=== PATIENT | female | born 1975 | race Caucasian/White ===

== ENCOUNTER → 2022-10-14 15:34 | Outpatient (BNVA) | payer MEDICAID, SELFPAY | PROVIDERS: PCP Family Medicine; Visit Provider Family Medicine | DX: Z20.822 Contact with and (suspected) exposure to COVID-19 (principal); R50.9 Fever, unspecified; R11.2 Nausea with vomiting, unspecified; R52 Pain, unspecified | CPT/HCPCS: 87400; 87426 ==

== ENCOUNTER → 2023-01-05 09:11 | Outpatient (BNVA) | payer MEDICAID, SELFPAY | PROVIDERS: PCP Family Medicine; Visit Provider Nurse Practitioner Family | DX: N32.81 Overactive bladder (principal); I10 Essential (primary) hypertension | CPT/HCPCS: 80053; 80061; 81003; 84443; 85025 ==

== ENCOUNTER → 2023-01-26 16:00 | Outpatient (BNVA) | payer MEDICAID, SELFPAY | PROVIDERS: PCP Family Medicine; Visit Provider Obstetrics & Gynecology | DX: Z12.4 Encounter for screening for malignant neoplasm of cervix (principal) | CPT/HCPCS: 87624 ==

== ENCOUNTER 2023-03-31 20:07 | Emergency (ER) | payer MEDICAID, SELFPAY ==
[2023-03-31 20:27] VITALS: BP 156/93; PULSE 72; RESP 16; TEMP 36.7; O2SAT 100
--- NOTE | 2023-03-31 20:59 | W.ED.NAVMDI ---
HPI - Nausea/Vomiting/Diarrhea General: Chief complaint: Nausea/Vomiting/Diarrhea Stated complaint: jaw pain / vomiting Time Seen by Provider: 03/31/23 20:55 History of Present Illness: Presents to the ER with complaints of nausea and vomiting since about 1-2 o'clock today. Patient had 4 teeth pulled yesterday went home and was doing good went to bed and slept and woke up this morning was still doing good up until about 1 or 2:00 when started vomiting. Patient's threw up all the contents of her stomach and just is dry heaving at the moment. Patient is thirsty and wants something to drink however she knows she cannot keep it down. Review of Systems General: Reports: 10 or more systems reviewed and unremarkable except in HPI and below PFSH ED PFSH: Medical History Anxiety and depression Arthritis Basal cell carcinoma Carpal tunnel syndrome, bilateral Chronic low back pain Hyperlipidemia Hypertension Overactive bladder Seasonal allergies Surgical History H/O tubal ligation History of Family History Mother Hypertension Diabetes AAA (abdominal aortic aneurysm) Heart disease Grandmother Cancer LIVER CANCER Social History Smoking and tobacco status: former smoker Quit status (tobacco): has quit using tobacco Year quit tobacco: QUIT 10 YEARS AGO, 1-2 pp Second hand smoke exposure: No Alcohol intake: current Alcohol intake frequency: holidays/special occasions only Alcohol type: hard liquor Substance/Drug Use: never Household members: spouse, family and children Marital status: service: No Current occupational status: employed Current gender identity: Female Christine/Evangelical: Quaker Special christine needs: No Physical Exam Const: COMMON NORMALS: no acute distress, average body habitus, patient oriented x3, no limitations, healthy appearing, alert and well nourished HENMT: COMMON NORMALS: normocephalic, atraumatic, hearing grossly normal bilaterally, external ears normal, Normal external nose present and moist oral mucous membranes HEAD & SCALP: normocephalic and atraumatic NOSE: Normal external nose present EXTERNAL EAR: Yes external ears normal Eye: COMMON NORMALS: Equal, round and reactive pupils present, EOMs intact bilaterally, conjunctivae normal and no scleral icterus CONJUNCTIVA: Yes conjunctivae normal PUPIL: Yes Equal, round and reactive pupils present Neck/C-Spine: COMMON NORMALS: full ROM, no lymphadenopathy, supple, no meningeal signs, no JVD and Thyroid normal THYROID: Thyroid normal Chest: COMMONS NORMALS: normal inspection of the chest and normal palpation of entire chest wall Resp: COMMON NORMALS: normal respiratory effort, No retractions, No use of accessory muscles and clear to auscultation bilaterally AUSCULTATION: clear to auscultation bilaterally Cardio: COMMON NORMALS: no JVD, regular rate, regular rhythm, S1 normal heart sound present, S2 normal heart sound present, No gallops present (Cardio), No clicks present (Cardio), No murmurs present (Cardio) and No rub (Cardio) RATE: regular rate RHYTHM: regular rhythm HEART SOUNDS: S1 normal heart sound present and S2 normal heart sound present GI: COMMON NORMALS: Normal to inspection, nondistended, normoactive bowel sounds present, Soft to palpation, non-tender, No hepatosplenomegaly present and no masses PALPATION: Yes Soft to palpation and Yes No hepatosplenomegaly present : COMMON NORMALS: Yes no CVA tenderness BLADDER/KIDNEY EXAM: Yes no CVA tenderness Back/Pelvis: COMMON NORMALS: no CVA tenderness Neuro: COMMON NORMALS: patient oriented x3 SENSORIUM/ORIENTATION: Yes alert MENINGEAL SIGNS: Yes no meningeal signs Course Vital Signs: Vital signs: Vital Signs Temperature 98.0 F 03/31/23 20:27 Pulse Rate 72 03/31/23 20:27 Respiratory Rate 16 03/31/23 20:27 Blood Pressure 156/93 03/31/23 20:27 Pulse Oximetry 100 03/31/23 20:27 Oxygen Delivery Me thod Room Air 03/31/23 20:27 MDM - Nausea/Vomiting/Diarrhea Medical Decision Making Patient presents to the ER with complaints of nausea vomiting for about the last 8 hours. Patient had 4 teeth pulled yesterday went home and was fine and then started vomiting today. Patient was given 1 L normal saline bolus 4 mg Zofran and felt much better upon finishing this. Patient states ready go home to and just wants some nausea medicine to go home with. Patient be discharged home with a prescription for Phenergan. Differential Diagnosis Unlikely traveler's diarrhea, food poisoning, gastroenteritis, clostridium difficile infection, drug-induced nausea and vomiting or dehydration Medical Records I reviewed the patient's medical records. Lab Data I reviewed the patient's lab results. 03/31/23 21:19 03/31/23 21:19 Laboratory Results WBC 9.85 10^3/uL (3.29-11.43) 03/31/23 21:19 RBC 4.45 10^6/uL (3.85-5.65) 03/31/23 21:19 Hgb 13.60 g/dL (11.27-16.99) 03/31/23 21:19 Hct 40.4 % (36-47) 03/31/23 21:19 MCV 90.8 fl (85-98) 03/31/23 21:19 MCH 30.6 pg (27-33) 03/31/23 21: MCHC 33.7 g/dL (30-55) 03/31/23 21:19 RDW 12.9 % (12.1-15.1) 03/31/23 21:19 Plt Count 214 10^3/cmm (157-399) 03/31/23 21:19 MPV 9.7 fL (7.4-10.4) 03/31/23 21:19 Neut % (Auto) 76.0 % 03/31/23 21:19 Lymph % (Auto) 17.2 % 03/31/23 21:19 [place] % (Auto) 4.9 % 03/31/23 21:19 Eos % (Auto) 0.8 % 03/31/23 21:19 Baso % (Auto) 0.8 % 03/31/23 21:19 Neut # (Auto) 7.49 10^3/uL (1.8-7.7) 03/31/23 21:19 Lymph # (Auto) 1.7 10^3/uL (0.8-4.8) 03/31/23 21:19 [place] # (Auto) 0.5 10^3/uL (0.2-0.9) 03/31/23 21:19 Eos # (Auto) 0.1 10^3/uL (0.0-0.8) 03/31/23 21:19 Baso # (Auto) 0.1 10^3/uL (0.0-0.1) 03/31/23 21:19 Nucleated RBC % (auto) 0 % 03/31/23 21:19 Nucleated RBCs # 0.0 /100WBC 03/31/23 21:19 Sodium 139 mmol/L (136-145) 03/31/23 21:19 Potassium 4.2 mmol/L (3.5-5.1) 03/31/23 21:19 Chloride 102 mmol/L (98-107) 03/31/23 21:19 Carbon Dioxide 26 mmol/L (22-29) 03/31/23 21:19 Anion Gap 15.2 (5-19) 03/31/23 21:19 BUN 9 mg/dL (6-20) 03/31/23 21:19 Creatinine 0.7 mg/dL (0.5-0.9) 03/31/23 21:19 GFR Calculation 88.9 mL/min (90-130) L 03/31/23 21:19 Glucose 112 mg/dL (65-115) 03/31/23 21:19 Calculated Osmolality 287 mOsm/kg (285-295) 03/31/23 21:19 Calcium 9.3 mg/dL (8.5-10.5) 03/31/23 21:19 Total Bilirubin 0.7 mg/dL (0.15-1.2) 03/31/23 21:19 AST 20 U/L (0-32) 03/31/23 21:19 ALT 16 U/L (0-33) 03/31/23 21:19 Alkaline Phosphatase 74 U/L (35-105) 03/31/23 21:19 Total Protein 7.2 g/dL (6.6-8.7) 03/31/23 21:19 Albumin 4.5 g/dL (3.5-5.2) 03/31/23 21:19 Globulin 2.7 g/dL (1.3-4.6) 03/31/23 21:19 Lipase 14 U/L (13-60) 03/31/23 21:19 Discharge Plan Discharge Patient Disposition: Home Clinical Impression: Nausea & vomiting Qualifiers: Vomiting type: unspecified Qualified Code(s): R11.2 - Nausea with vomiting, unspecified Condition: Stable Prescriptions: New promethazine 25 mg tablet 25 mg PO Q6H PRN (Reason: nausea and vomiting) Qty: 14 0RF No Action loratadine 10 mg tablet 10 mg PO DAILY Biofreeze (menthol) 4 % gel 1 applic topical TID PRN oxybutynin chloride 15 mg tablet extended release 24hr 15 mg PO DAILY Qty: 90 1RF losartan 25 mg tablet 25 mg PO DAILY Qty: 90 1RF gabapentin 300 mg capsule See Rx Instructions PO .COMPLEX Qty: 450 1RF Rx Instructions: take 2 in the AM, 1 at noon, 2 in the PM orally; fluoxetine 40 mg capsule 40 mg PO DAILY Qty: 90 1RF atorvastatin 20 mg tablet 20 mg PO DAILY Qty: 90 1RF ondansetron HCl 8 mg tablet 8 mg PO Q8H PRN amoxicillin 875 mg tablet 875 mg PO BID Qty: 20 0RF Discharge Orders: Discharge ED (Routine); Ordered 03/31/23 Ordered By: Robson Causey Referrals: Meka Vasquez MD [Primary Care Provider] - 1 week Patient Instructions: Acute Nausea and Vomiting (ED) Activity Restrictions/Additional Instructions: Take all medicine as directed, please drink plenty of fluids, please follow-up with your family practice doctor in approximately 7 days or sooner as needed. Coding Level of Care Code ED Iron Handler for Ashley Wadsworth
[2023-03-31] MEDS: sodium chloride 0.9% 1,000 ML 999 ML IV (21:11)
[2023-03-31] MEDS: ondansetron 2 mg/ML SDV 2 mL 4 MG IVP (21:12)
[2023-03-31 21:15] VITALS: BP 130/85; PULSE 59; O2SAT 97
[2023-03-31 21:26] LABS: Basophils # 0.1 10^3/uL (0.0-0.1); Basophils % 0.8 %; Eosinophils # 0.1 10^3/uL (0.0-0.8); Eosinophils % 0.8 %; Hematocrit 40.4 % (36-47); Lymphocytes # 1.7 10^3/uL (0.8-4.8); Lymphocytes % 17.2 %; Mean Corpuscular HGB Conc 33.7 g/dL (30-55); Mean Corpuscular Hemoglobin 30.6 pg (27-33); Mean Corpuscular Volume 90.8 fl (85-98); Mean Platelet Volume 9.7 fL (7.4-10.4); Monocytes # 0.5 10^3/uL (0.2-0.9); Monocytes % 4.9 %; Neutrophils # 7.49 10^3/uL (1.8-7.7); Nucleated Red Blood Cells % 0 %; Platelet Count 214 10^3/cmm (157-399); Red Blood Count 4.45 10^6/uL (3.85-5.65); Red Cell Distribution Width 12.9 % (12.1-15.1); White Blood Count 9.85 10^3/uL (3.29-11.43)
[2023-03-31 21:42] LABS: Alanine Aminotransferase 16 U/L (0-33); Albumin Level 4.5 g/dL (3.5-5.2); Alkaline Phosphatase 74 U/L (35-105); Anion Gap 15.2 (5-19); Aspartate Amino Transferase 20 U/L (0-32); Blood Urea Nitrogen 9 mg/dL (6-20); Calcium 9.3 mg/dL (8.5-10.5); Carbon Dioxide 26 mmol/L (22-29); Chloride 102 mmol/L (98-107); Globulin 2.7 g/dL (1.3-4.6); Glomerular Filtration Rate 88.9 mL/min (90-130); Glucose 112 mg/dL (65-115); Lipase 14 U/L (13-60); Osmolality Calculated 287 mOsm/kg (285-295); Potassium 4.2 mmol/L (3.5-5.1); Sodium 139 mmol/L (136-145); Total Bilirubin 0.7 mg/dL (0.15-1.2); Total Protein 7.2 g/dL (6.6-8.7)
[2023-03-31 22:00] VITALS: BP 142/92; PULSE 67; O2SAT 96
== END 2023-03-31 22:33 | disposition home or self-care (01) ==
PROVIDERS: Emergency Medicine; Emergency Provider Emergency Medicine; PCP Family Medicine
DX: R11.2 Nausea with vomiting, unspecified (principal); Z87.891 Personal history of nicotine dependence; I10 Essential (primary) hypertension; E78.5 Hyperlipidemia, unspecified
CPT/HCPCS: 80053; 83690; 85025; 96361; 96374; 99284; J2405; J7030

== ENCOUNTER → 2023-06-27 12:14 | Outpatient (BNVA) | payer BC, MEDICAID, SELFPAY | PROVIDERS: PCP Family Medicine; Visit Provider Nurse Practitioner Family | DX: M25.50 Pain in unspecified joint (principal); I10 Essential (primary) hypertension | CPT/HCPCS: 80053; 80061; 82306; 82607; 84443; 84550; 85025; 85651; 86038; 86140; 86200; 86431 ==

== ENCOUNTER → 2023-08-15 15:42 | Outpatient (BNVA) | payer BC, MEDICAID, SELFPAY | PROVIDERS: PCP Family Medicine; Visit Provider Nurse Practitioner Family | DX: J06.9 Acute upper respiratory infection, unspecified (principal); R05.9 Cough, unspecified | CPT/HCPCS: 87486; 87581; 87633 ==

== ENCOUNTER → 2023-11-01 10:58 | Outpatient (BNVA) | payer MEDICAID, SELFPAY | PROVIDERS: PCP Nurse Practitioner Family; Visit Provider Nurse Practitioner Family | DX: I10 Essential (primary) hypertension (principal) | CPT/HCPCS: 80053; 80061; 82306; 83036; 85025 ==

== ENCOUNTER 2024-01-31 10:52 | Outpatient (CLI) | payer OTHER, MEDICAID, SELFPAY | END 2024-02-01 10:19 | disposition home or self-care (01) | PROVIDERS: PCP Nurse Practitioner Family; Visit Provider Nurse Practitioner Family | DX: R10.9 Unspecified abdominal pain (principal) | CPT/HCPCS: 81003 ==

== ENCOUNTER 2024-02-01 10:36 | Outpatient (CLI) | payer OTHER, SELFPAY ==
--- NOTE | 2024-02-01 10:43 | XR_ITS ---
WS: [id number] Exam: XR KUB [id number] Date/Time of Exam: 02/01/2024 10:53 AM Reason For Exam: R10.9 - Unspecified abdominal pain No bowel obstruction or pneumoperitoneum. No sign of organ enlargement. Regional bony elements are in tact. Nonspecific small pelvic calcifications noted. Bony structures are unremarkable. XR/XR KUB [id number] IMPRESSION: 1. No acute abdominal finding.
== END 2024-02-01 10:37 | disposition home or self-care (01) ==
PROVIDERS: PCP Nurse Practitioner Family; Visit Provider Nurse Practitioner Family
DX: R10.9 Unspecified abdominal pain (principal)
CPT/HCPCS: 74018

== ENCOUNTER → 2024-02-06 13:00 | Outpatient (BNVA) | payer OTHER, SELFPAY | PROVIDERS: PCP Nurse Practitioner Family; Visit Provider Nurse Practitioner Family | DX: R30.0 Dysuria (principal) | CPT/HCPCS: 81003 ==

== ENCOUNTER → 2024-03-15 13:09 | Outpatient (BNVA) | payer OTHER, SELFPAY | PROVIDERS: PCP Nurse Practitioner Family; Visit Provider Nurse Practitioner Family | DX: R10.9 Unspecified abdominal pain (principal) | CPT/HCPCS: 81015; 87086 ==

== ENCOUNTER → 2024-06-28 09:34 | Outpatient (BNVA) | payer OTHER, SELFPAY | PROVIDERS: PCP Nurse Practitioner Family; Visit Provider Nurse Practitioner Family | DX: I10 Essential (primary) hypertension (principal); F41.9 Anxiety disorder, unspecified; F32.A Depression, unspecified; E55.9 Vitamin D deficiency, unspecified | CPT/HCPCS: 80053; 80061; 82306; 82607; 83036; 84443; 85025 ==